=== PATIENT | female | born 1990 | race Caucasian/White ===

== ENCOUNTER 2016-12-01 16:38 | Emergency (ER) | payer OTHER ==
[~2016-12-01] VITALS: Ht 170.2 cm; Wt 99.8 kg
[2016-12-01 16:51] VITALS: BP 114/74
--- NOTE | 2016-12-01 17:47 | NUR ---
Dr. Beckford evaluating patient in OF2.
--- NOTE | 2016-12-01 18:10 | NUR ---
PT CAME TO ER W/C/O LOW BACK THROBBING PAIN /10 WHEN MOVING; WAS SEEN [facility]ESTERDAY [facility] DX UTI; PRESCRIBE ANTIBIOTICS BUT DID NOT TAKE ANY;HX OF ASTHMA, KIDNEY STONE;DENIES N/V/D; SKIN IS PINK/WARM/DRY; AAOX4 WITH EVEN AND STEADY GAIT; LUNGS CLEAR BL; HR EVEN AND REGULAR; PT DENIES ANY FEVER, CP, SOB, OR COUGH AT THIS TIME; PATIENT STATES PAIN OF 9/10 AT THIS TIME;PATIENT POSITIONED FOR COMFORT; HOB ELEVATED; BEDRAILS UP X2; BED DOWN.ALL MONITORS IN PLACED.
--- NOTE | 2016-12-01 18:41 | NUR ---
Patient discharged with v/s stable. Written and verbal after care instructions given and explained. Patient alert, oriented and verbalized understanding of instructions. Ambulatory with steady gait. All questions addressed prior to discharge. ID band removed. Patient advised to follow up with PMD. Rx of ULTRAM,FLEXERIL AND ZOFRAN given. Patient educated on indication of medication including possible reaction and side effects. Opportunity to ask questions provided and answered.
[2016-12-01 18:42] VITALS: BP 132/68
== END 2016-12-01 18:41 | disposition home or self-care (01) ==
LOC: MED 16:38
DX: N20.0 Calculus of kidney (principal); J45.909 Unspecified asthma, uncomplicated; Z88.8 Allergy status to other drugs, medicaments and biological substances
CPT/HCPCS: 81002; 81025; 99284

== ENCOUNTER 2018-10-01 19:47 | Emergency (ER) | payer OTHER ==
[~2018-10-01] VITALS: Ht 170.2 cm; Wt 108.4 kg
[2018-10-01 19:56] VITALS: BP 117/75
--- NOTE | 2018-10-01 19:57 | NUR ---
PT AMBULATED TO BED 12
--- NOTE | 2018-10-01 20:09 | NUR ---
28 YO F BIB SELF AND BOYFRIEND PRESENTS TO THE ED C/O 01/11 SHARP MIDDLE ABD PAIN THAT RADIATES TO LOWER BACK X 4 DAYS. PT WAS SEEN AT [facility] 3 DAYS AGO AND DX WITH GALLSTONES. SHE WAS GIVEN RX FOR NORCO AND INSTRUCTED TO F/U WITH PMD. PT STATES NORCO ISN'T HELPING WITH PAIN AND HER APPT WITH HER PMD ISN'T UNTIL OCTOBER 22. SHE WAS INSTRUCTED TO RETURN TO ER IF PAIN CONTINUES. SHE ALSO REPORTS NAUSEA, DECREASED APPETITE AND DIARRHEA. DENIES FEVER, CHILLS, DYSURIA, URINARY BURNING. -- ABD IS SOFT, LARGE, ROUND. NO REBOUND TENDERNESS NOTED. BOWEL SOUNDS PRESENT, ACTIVE TO ALL 4 QUADRANTS. -- SKIN PINK, DRY, WARM. BREATHING EVEN, UNLABORED. -- PT ALERT, CALM, COOPERATIVE. BEHAVIOR APPROPRIATE. PMH-- ASTHMA RX-- NORCO @ 1100 PT POSITIONED FOR COMFORT. HOB ELEVATED. SIDE RAIL UP X1. BED IN LOWEST POSITION. VSS. NO APPARENT DISTRESS AT THIS TIME.
[2018-10-01] MEDS ORDERED: KETOROLAC 30 MG/ML VIAL IM ONE (20:20)
--- NOTE | 2018-10-01 20:30 | NUR ---
LAB AT BEDSIDE.
[2018-10-01 20:42] LABS: BASOPHILS % (AUTO) 0.5 % (0.0-2.0); EOSINOPHILS # (AUTO) 0.3 K/uL (0-0.4); EOSINOPHILS % (AUTO) 4.5 % (0.0-4.0); HEMATOCRIT 35.1 % (36-48); HEMOGLOBIN 11.1 g/dL (12.0-16.0); LYMPHOCYTES # (AUTO) 1.5 K/uL (2.5-16.5); LYMPHOCYTES % (AUTO) 26.9 % (20.5-51.1); MEAN CORPUSCULAR HEMOGLOBIN 25 pg (27-31); MEAN CORPUSCULAR HGB CONC 32 g/dL (33-37); MEAN CORPUSCULAR VOLUME 79.4 fL (80-94); MONOCYTES # (AUTO) 0.6 K/uL (0.8-1.0); MONOCYTES % (AUTO) 10.7 % (1.7-9.3); NEUTROPHILS # (AUTO) 3.2 K/uL (1.8-7.7); NEUTROPHILS % (AUTO) 57.4 % (42.2-75.2); PLATELET COUNT (AUTO) 216 K/uL (140-450); RED BLOOD CELL COUNT(AUTO) 4.42 MIL/uL (4.20-5.40); RED CELL DISTRIBUTION WIDTH 15.1 % (11.6-13.7); WHITE BLOOD COUNT (AUTO) 5.6 K/uL (4.8-10.8)
[2018-10-01 20:55] LABS: ALBUMIN 3.4 g/dL (3.4-5.0); CARBON DIOXIDE 25.6 mmol/L (21-32); CREATININE 0.5 mg/dL (0.6-1.3); POTASSIUM 3.6 mmol/L (3.5-5.1); TOTAL BILIRUBIN 0.3 mg/dL (0.0-1.0)
[2018-10-01] MEDS ORDERED: MORPHINE SULFATE 4 MG/ML SYR IM ONE (21:10)
[2018-10-01 21:47] VITALS: BP 117/49
--- NOTE | 2018-10-01 21:47 | NUR ---
Patient discharged with v/s stable. Written and verbal after care instructions given and explained. Patient alert, oriented and verbalized understanding of instructions. Ambulatory with steady gait. All questions addressed prior to discharge. ID band removed. Patient advised to follow up with PMD. Rx of [place] given. Patient educated on indication of medication including possible reaction and side effects. Opportunity to ask questions provided and answered.
== END 2018-10-01 21:47 | disposition home or self-care (01) ==
LOC: MED 19:47
DX: K80.20 Calculus of gallbladder without cholecystitis without obstruction (principal); R42 Dizziness and giddiness; J45.909 Unspecified asthma, uncomplicated; Z87.442 Personal history of urinary calculi; Z88.6 Allergy status to analgesic agent
CPT/HCPCS: 36415; 80053; 81002; 81025; 83690; 85025; 96372; 99283; J1885; J2270

== ENCOUNTER 2021-04-21 10:15 | Emergency (ER) | payer OTHER ==
[~2021-04-21] VITALS: Ht 170.2 cm; Wt 96.6 kg
[2021-04-21 10:25] VITALS: BP 124/94
--- NOTE | 2021-04-21 10:35 | NUR ---
DR. OBRIEN BEDSIDE EVALUATING PT
--- NOTE | 2021-04-21 10:38 | NUR ---
30yo f c/o sore throat and swelling since last night. denies intake of food prior to swelling. denies injury or trauma to area. Pt denies any chest pain, sob, fever/chills, cough, n/v/d at this time. Upon assessment pt throat is swollen at this time. Breath sounds clear. pmh: none meds: none allergies: pyridium
[2021-04-21] MEDS ORDERED: NAPR-54 PO (10:48)
[2021-04-21] MEDS ORDERED: AMOX500C25 PO (10:49)
[2021-04-21 11:02] VITALS: BP 124/94
--- NOTE | 2021-04-21 11:02 | NUR ---
STREP SWAB COLLECTED AND WALKED OVER TO LAB
--- NOTE | 2021-04-21 11:02 | NUR ---
HOMELESS PACKET PROVIDED TO PATIENT. HOMELESS WAIVER SIGNED BEDSIDE AND PLACED INTO CHART
--- NOTE | 2021-04-21 11:03 | NUR ---
Patient discharged with v/s stable. Written and verbal after care instructions given and explained. Patient alert, oriented and verbalized understanding of instructions. Ambulatory with steady gait. All questions addressed prior to discharge. ID band removed. Patient advised to follow up with PMD. Rx of amoxicillin, naproxen given. Patient educated on indication of medication including possible reaction and side effects. Opportunity to ask questions provided and answered.
== END 2021-04-21 11:02 | disposition home or self-care (01) ==
LOC: MED 10:15
DX: J02.9 Acute pharyngitis, unspecified (principal); R05.9 Cough, unspecified; F15.90 Other stimulant use, unspecified, uncomplicated; Z79.899 Other long term (current) drug therapy; Z88.8 Allergy status to other drugs, medicaments and biological substances
CPT/HCPCS: 87081; 99283

== ENCOUNTER 2021-04-28 02:35 | Emergency (ER) | payer OTHER ==
[~2021-04-28] VITALS: Ht 170.2 cm; Wt 96.3 kg
[~2021-04-28 02:35] MED LIST: AMOX500C25 PO; NAPR-54 PO
[2021-04-28 02:41] VITALS: BP 128/99
[2021-04-28] MEDS ORDERED: ETHYL CHLORIDE 105 ML SPR TP ONE (02:55)
--- NOTE | 2021-04-28 02:56 | NUR ---
ERMD AT BEDSIDE WITH ULTRASOUND.
[2021-04-28 03:30] VITALS: BP 128/99
--- NOTE | 2021-04-28 03:30 | NUR ---
The patient's care was reviewed and supervised by Jessy Kearney RN, RN.
--- NOTE | 2021-04-28 03:30 | NUR ---
Patient discharged with v/s stable. Written and verbal after care instructions given and explained. Patient verbalized understanding. Ambulatory with steady gait. ARM BAND REMOVED. All questions addressed prior to discharge. Advised to follow up with PMD.
--- NOTE | 2021-04-28 03:30 | NUR ---
Note edilson in EDM - 04/28/21 at 0359 by MONTSE Patient discharged with v/s stable. Written and verbal after care instructions given and explained. Patient verbalized understanding. ARM BAND REMOVED. Ambulatory with to car. All questions addressed prior to discharge. Advised to follow up with PMD.
== END 2021-04-28 03:30 | disposition home or self-care (01) ==
LOC: MED 02:35
DX: S50.11XA Contusion of right forearm, initial encounter (principal); T43.625A Adverse effect of amphetamines, initial encounter; F17.210 Nicotine dependence, cigarettes, uncomplicated; F15.90 Other stimulant use, unspecified, uncomplicated; Z79.899 Other long term (current) drug therapy; Z88.8 Allergy status to other drugs, medicaments and biological substances; X58.XXXA Exposure to other specified factors, initial encounter; Y93.89 Activity, other specified; Y92.89 Other specified places as the place of occurrence of the external cause; Y99.8 Other external cause status
CPT/HCPCS: 99284

== ENCOUNTER 2023-12-18 13:52 | Emergency (ER) | payer MEDICAID, OTHER ==
[~2023-12-18] VITALS: Ht 170.2 cm; Wt 85.4 kg
[~2023-12-18 13:52] MED LIST changes: +NAPR-337 PO; -NAPR-54 PO
[2023-12-18 14:10] VITALS: BP 118/65; PULSE 93; RESP 18; TEMP 98; O2SAT 99
[2023-12-18] MEDS ORDERED: FERR325E14 PO (14:36)
[2023-12-18] MEDS ORDERED: ALBU0.0912 IH (14:36)
[2023-12-18 14:48] LABS: APPEARANCE,URINE SL CLOUDY (CLEAR); BILIRUBIN,URINE NEGATIVE (NEGATIVE); BLOOD, URINE 3+ (NEGATIVE); COLOR,URINE YELLOW (YELLOW); LEUKOCYTE ESTERASE ,URINE 1+ (NEGATIVE); NITRITE, URINE POSITIVE (NEGATIVE); PROTEIN,URINE NEGATIVE (NEGATIVE); UGLUCOSE NEGATIVE (NEGATIVE); UROBILINOGEN,URINE 0.2 EU/dL (0.2 - 1)
[2023-12-18] MEDS ORDERED: CEPH-588 PO (14:57)
[2023-12-18 15:00] LABS: BACTERIA,URINE >30 (MANY) /HPF (None Seen); SQUAMOUS EPITHELIAL CELL,UR 0-3 (FEW) /LPF (0-3 (FEW))
== END 2023-12-18 15:33 | disposition home or self-care (01) ==
LOC: MED 13:52
DX: N39.0 Urinary tract infection, site not specified (principal); J45.909 Unspecified asthma, uncomplicated; Z76.0 Encounter for issue of repeat prescription; Z79.1 Long term (current) use of non-steroidal anti-inflammatories (NSAID); Z79.2 Long term (current) use of antibiotics; Z79.899 Other long term (current) drug therapy
CPT/HCPCS: 81001; 81025; 87086; 87186; 99283